=== PATIENT | female | born 1955 | race Caucasian/White ===

== ENCOUNTER 2024-01-07 12:19 | Emergency (ER) | payer MEDICARE, OTHER, SELFPAY ==
[2024-01-07 12:21] VITALS: BP 111/74
--- NOTE | 2024-01-07 13:08 | ED.SKININJ ---
HPI-Injury
General
Chief Complaint: Bite
Source: patient
Time Seen by Provider: 01/07/24 12:59
History of Present Illness-Injury
Initial Injury comments:
68yo right hand dominant female presenting for evaluation of a dog bite of her right hand that was sustained 1 week ago. Patient was bitten by her own dog and dog is domesticated and UTD on rabies vaccinations. Patient was seen at [facility]
immediately after the incident. Wound was cleaned and steri-strips were applied. She was started on Augmentin which she finished yesterday. She was seen today by her director of assisted living who advised her to go to the ED for evaluation. Patient denies any
drainage from the wound. No fevers or chills. She states she is mainly here because the wound has not healed and she would like to see a hand surgeon. Tdap was updated at her ED visit last week.
Phy Exam
General Physical Exam
General Presentation: well appearing and no apparent distress
General age: appears stated age
General Skin: warm and dry
General Habitus: normal
General Mental: alert
ENT Exam
ENT Exam: normocephalic
Santos Coma Scale
Eye Opening: Spontaneous
Verbal Response: Oriented
Motor Response: Obeys Commands
GCS Total Score: 15
Musculoskeletal Exam
Musculoskeletal Exam: other (Approx 2-3cm laceration present to the medial palmar aspect of R hand. Laceration is mildly gaping. No surrounding erythema, warmth, drainage. ROM of DIP, PIP, and MCP joints intact. 2+ radial pulse and sensation intact.
)
Skin Exam
Skin Exam: warm/dry
Psychiatric Exam
Psychiatric Exam: normal mood/affect
Course
Vital Signs
Initial and Last Documented VS:
Initial Vital Signs
Temp Pulse Resp BP Pulse Ox
98.5 F 86 16 111/74 95
01/07/24 12:21 01/07/24 12:21 01/07/24 12:21 01/07/24 12:21 01/07/24 12:21
Last Documented Vital Signs
Temp Pulse Resp BP Pulse Ox
98.5 F 86 16 111/74 95
01/07/24 12:21 01/07/24 12:21 01/07/24 12:21 01/07/24 12:21 01/07/24 12:21
MDM/Problems Addressed
Differential Diagnosis Includes:
68yoF here with a nonhealing dog bite to her R hand that occurred 1 week ago. She finished a course of Augmentin yesterday. She denies any signs of infection. She was told to go to the ED by her director of assisted living for her non-healing laceration. VSS.
There is mildly gaping laceration on exam without any surrounding signs of cellulitis. ROM of fingers/wrist intact. RUE is neurovascularly intact.
Discussed with patient that I am unable to suture the laceration as it is 1 week old due to risk of infection. Offered to obtain x-rays of the hand which she declines. Again, there are no clinical signs of infection. Will have patient f/u with hand
surgery in the outpatient setting. Home wound care discussed. Strict ED return precautions discussed including signs of infection. She expressed understanding and was discharged in stable condition.
*Critical Care Note
Total Time (30-74mins, 75-104mins- exclusive of procedures): Not Applicable
ED Attending Note
-
Portions of this chart may have been created with voice recognition software.� Occasional wrong word or��sound alike� substitutions may have occurred due to the inherent limitations of voice recognition software.
Discharge Plan
Departure
Patient Disposition: Home (Routine Discharge)
Date of Disposition: 01/07/24
Time of Disposition: 13:11
Patient with high blood pressure during this ER visit?: No
Discharge Problem:
Dog bite of right hand
Instructions: Animal Bites (DC)
Referrals:
Karthikeyan Rodriguez MD [Active] -
Activity Restrictions/Additional Instructions:
Keep wound clean and dry.
Please call to schedule a follow-up with hand surgery. Return to the ER with any signs of infection (redness, drainage, warmth, fevers, worsening pain).
Interventions
Interventions:
*Risk Screen - Suicide Last Done: 01/07/24 13:41
*General Assessment Last Done: 01/07/24 13:41
*Neglect/Abuse Screening Last Done: 01/07/24 13:41
ED- Fall Risk Assessment Last Done: 01/07/24 13:41
*ED COVID-19 Vaccine History Last Done: 01/07/24 13:41
*Nursing Disposition Last Done: 01/07/24 13:41
ED-Skin Assessment Last Done: 01/07/24 13:41
Discharge Date and Time
Discharge Date/Time: 01/07/24 13:43
Print Language: UPPER SORBIAN
== END 2024-01-07 13:43 | disposition home or self-care (01) ==
LOC: EMR 12:19
PROVIDERS: EMERGENCY PHYSICIAN Emergency Medicine; FAMILY PHYSICIAN Internal Medicine
DX: S61.411D Laceration without foreign body of right hand, subsequent encounter (principal); W54.0XXD Bitten by dog, subsequent encounter
CPT/HCPCS: 99282